=== PATIENT | female | born 1980 ===

== ENCOUNTER 2017-05-22 09:05 | Outpatient (CLI) | payer OTHER | END 2017-05-22 17:00 | disposition home or self-care (01) | LOC: SONOGRAMA 09:05 | DX: R10.2 Pelvic and perineal pain (principal) ==

== ENCOUNTER 2017-05-22 09:18 | Outpatient (CLI) | payer OTHER | END 2017-05-22 17:00 | disposition home or self-care (01) | LOC: RAD 09:18 | DX: R10.2 Pelvic and perineal pain (principal) ==